=== PATIENT | female | born 1980 | race Caucasian/White ===

== ENCOUNTER 2017-05-19 18:39 | Inpatient (IN) | payer BC, OTHER ==
--- NOTE | 2017-05-19 19:15 | PDOC ---
History of Present Illness - General History Source: Patient Exam Limitations: No Limitations - History of Present Illness Initial Comments: Medical decision making this is a 36-year-old female who comes in complaining of intermittent right upper quadrant pain times several weeks. Now constant times the last 24 hours approximately. Patient denies any fevers or chills. Patient however is complaining of some nausea and vomiting. Differential diagnosis includes viral etiology, gastritis, cholecystitis, pancreatitis Will obtain workup including CBC, comp, gallbladder ultrasound, EKG Well-hydrated patient, given antiemetics and pain medication We'll reassess and follow-up the workup results 05/19/17 20:50 Reassessment: Patient improved with pain medication IV fluids and antiemetics, patient's workup so far shows normal white count with no left shift however her LFTs are elevated including her alkaline phosphatase. Patient's gallbladder ultrasound is still pending. 05/19/17 21:22 Patient's gallbladder shows acute cholecystitis. Discussed with Dr. Aliyah lucas who will consult on the patient patient will be admitted to the hospitalist service for medical clearance <Disha Gary I - Last Filed: 05/19/17 21:22> - General History Source: Patient Exam Limitations: No Limitations - History of Present Illness Initial Comments: 05/19/17 19:32 The patient is a 36 year old female, sent by PCP, with a significant past medical history of gastritis who presents to the ED with several days of abdominal pain. The patient reports a sudden onset of intermittent upper quadrant pain that radiates to her back Friday afternoon that lasted several hours before residing. She states the pain came on again last night around 8 pm secondary to eating rice and fried chicken and has not resided since. Patient described her pain as sharp and states it is worsened secondary to eating. She also reports multiple episodes of nausea and vomiting associated with present symptoms. She notes this is her 5th episode of similar symptoms this month. Patient visited her PCP earlier today for present symptoms and was sent to the ED. Denies fever or chills. Denies diarrhea or constipation. Denies chest pain or shortness of breath. Denies dysuria or change in urinary output. Denies any other symptoms. PAST MEDICAL HISTORY: gastritis PAST SURGICAL HISTORY: no significant history FAMILY HISTORY: no pertinent history SOCIAL HISTORY: Pt lives with family and is employed. MEDICATIONS: reviewed ALLERGIES: Penicillin General: No fevers or chills, no weakness, no weight loss HEENT: No change in vision. No sore throat,. No ear pain CardioVascular: No chest pain or shortness of breath Respiratory:No cough, or wheezing. Gastrointestinal: + abdominal pain, nausea, vomiting. no diarrhea or constipation, No rectal bleeding Genitourinary: No dysuria, hematuria, or frequency Musculoskeletal: No joint or muscle pain or swelling Neurologic: No headache, vertigo, dizziness or loss of consciousness Psychiatric: nor depression Skin: No rashes or easy bruising Endocrine: no increased thirst or abnormal weight change Allergic: no skin or latex allergy All other systems reviewed and normal General: Well-nourished well-developed individual, no acute distress HEENT: Throat: Normal, tonsils normal, no erythema or exudate Neck: Supple, no meningeal signs, no lymphadenopathy Eyes::Pupils equal reactive and round, extraocular motion intact Chest: Nontender to palpation Cardiac: S1-S2 normal, regular rate and rhythm, no murmurs rubs or gallops Respiratory: Lungs clear to auscultation bilateral Abdomen: + moderate tenderness in the right upper quadrant and epigastric area. Bowel sounds are present but slightly decreased. Soft, nondistended Extremities: Warm, dry, no cyanosis, clubbing, or edema Skin: No rashes Neuro: Alert and oriented x3, nonfocal exam, grossly intact, normal gait Psych: Normal mood and affect <Gerald Frances - Last Filed: 05/19/17 21:42> - General Chief Complaint: Pain Stated Complaint: ABD PAIN Time Seen by Provider: 05/19/17 19:14 Past History - Past Medical History COPD: No GI Disorders: Yes (GASTRITIS) Psychiatric Problems: Yes (ANXIETY) - Suicide/Smoking/Psychosocial Hx Smoking History: Never smoked Have you smoked in the past 12 months: No Hx Alcohol Use: (rarely) Substance Use Type: None <Disha Gary I - Last Filed: 05/19/17 21:22> <Gerald Frances - Last Filed: 05/19/17 21:42> - Past Medical History Allergies/Adverse Reactions: Allergies Allergy/AdvReac Type Severity Reaction Status Date / Time Penicillins Allergy Severe Hives Verified 05/19/17 18:44 Home Medications: Ambulatory Orders Pantoprazole Sodium [Protonix -] 40 mg PO DAILY #30 tablet.ec 06/19/14 *Physical Exam - Vital Signs Last Vital Signs Temp Pulse Resp BP Pulse Ox 98.7 F 62 18 113/77 100 05/19/17 18:40 05/19/17 18:40 05/19/17 18:40 05/19/17 18:40 05/19/17 18:40 <Disha Gary I - Last Filed: 05/19/17 21:22> - Vital Signs Last Vital Signs Temp Pulse Resp BP Pulse Ox 98.7 F 62 18 113/77 100 05/19/17 18:40 05/19/17 18:40 05/19/17 18:40 05/19/17 18:40 05/19/17 18:40 <Gerald Frances - Last Filed: 05/19/17 21:42> ED Treatment Course - LABORATORY CBC & Chemistry Diagram: 05/19/17 19:40 05/19/17 19:40 <Disha Gary I - Last Filed: 05/19/17 21:22> - LABORATORY CBC & Chemistry Diagram: 05/19/17 19:40 05/19/17 19:40 - ADDITIONAL ORDERS Additional order review: Laboratory Results 05/19/17 18:56 Urine Color Yellow Urine Appearance Clear Urine pH 8.5 H Ur Specific [place] 1.020 Urine Protein Negative Urine Glucose (UA) Negative Urine Ketones Negative Urine Blood Negative Urine Nitrite Negative Urine Bilirubin Negative Urine Urobilinogen 2.0 H Ur Leukocyte Esterase Negative Urine HCG, Qual Negative - RADIOLOGY Radiograph Interpretation: 05/19/17 21:41 US/GALLBLADDER US Impression: Cholelithiasis with positive [place] sign suspicious for acute cholecystitis. Reported by: Gustavo Hay <Gerald Frances - Last Filed: 05/19/17 21:42> *DC/Admit/Observation/Transfer - Discharge Dispostion Admit: Yes <Disha Gary I - Last Filed: 05/19/17 21:22> - Attestations Scribe Attestion: 05/19/17 19:32 Documentation prepared by Gerald Frances, acting as biomedical repair technician for Disha Gary MD <Gerald Frances - Last Filed: 05/19/17 21:42> Diagnosis at time of Disposition: Acute cholecystitis due to biliary calculus - Discharge Dispostion Condition at time of disposition: Stable
[2017-05-19 19:21] LABS: PH,URINE 8.5 (4.5-8); URINE APPEARANCE Clear; URINE BILIRUBIN Negative (NEGATIVE); URINE BLOOD Negative (NEGATIVE); URINE GLUCOSE (UA) Negative (NEGATIVE); URINE KETONE Negative (NEGATIVE); URINE LEUK ESTERASE Negative (NEGATIVE); URINE NITRITE Negative (NEGATIVE); URINE PROTEIN Negative (NEGATIVE)
[2017-05-19 19:22] LABS: URINE COLOR YELLOW
[2017-05-19] MEDS ORDERED: KETOROLAC TROMETHAMINE 30 MG/1 ML VIAL IVPUSH ONE (19:22)
[2017-05-19] MEDS ORDERED: morphine CARPU-JECT 4 MG/1 ML DISP.SYRIN IVPUSH ONE (19:22)
[2017-05-19] MEDS ORDERED: SODIUM CHLORIDE 1,000 ML IV ONE (19:22)
[2017-05-19] MEDS ORDERED: ONDANSETRON 4 MG/2 ML VIAL IVPB ONE (19:22)
[2017-05-19 19:23] LABS: HCG,QUALITATIVE URINE NEGATIVE
[2017-05-19] MEDS ORDERED: morphine SULFATE 4 MG/ML VIAL ONE (19:45)
[2017-05-19] MEDS ORDERED: KETOROLAC TROMETHAMINE 30 MG/1 ML VIAL ONE (19:46)
[2017-05-19] MEDS ORDERED: ONDANSETRON 4 MG/2 ML VIAL ONE (19:46)
[2017-05-19 20:01] LABS: EOS % 1.8 % (0-4.5); HEMATOCRIT 43.8 % (32.4-45.2); HEMOGLOBIN 14.6 GM/dl (10.7-15.3); LYMPH % 26.6 % (8-40); MCH 28.5 pg (25.7-33.7); MCHC 33.2 g/dl (32.0-36.0); MEAN CELL VOLUME 85.9 fl (80-96); MEAN PLT VOLUME 8.7 fl (7.5-11.1); MONO % 6.4 % (3.8-10.2); NEUT % 64.2 % (42.8-82.8); PLATELET COUNT 270 K/MM3 (134-434); RDW 12.2 % (11.6-15.6); WHITE BLOOD COUNT 7.5 K/mm3 (4.0-10.8)
[2017-05-19 20:11] LABS: ALBUMIN 4.3 g/dl (3.5-5.0); ALK PHOS 177 U/L (32-92); ANION GAP 7 (8-16); BILIRUBIN,TOTAL 0.7 mg/dl (0.2-1.0); BLOOD UREA NITROGEN 11 mg/dl (7-18); CALCIUM 9.5 mg/dl (8.4-10.2); CHLORIDE 104 mmol/L (98-107); CO2 25 mmol/L (22-28); CREATININE 0.8 mg/dl (0.6-1.3); GLUCOSE,RANDOM 85 mg/dl (74-106); POTASSIUM 3.6 mmol/L (3.5-5.1); SODIUM 136 mmol/L (136-145); TOT PROT 7.6 g/dl (6.4-8.3)
[2017-05-19 20:31] LABS: SGOT/AST 695 U/L (10-42); SGPT/ALT 835 U/L (10-40)
[2017-05-19] MEDS ORDERED: ONDANSETRON 4 MG/2 ML VIAL IVPB PRN (21:11)
[2017-05-19] MEDS ORDERED: SODIUM CHLORIDE 1,000 ML IV SCH (21:15)
[2017-05-19] MEDS ORDERED: PANTOPRAZOLE SODIUM 40 MG VIAL ONE (21:39)
[2017-05-19] MEDS: PANTOPRAZOLE SODIUM 40 MG VIAL IVPUSH SCH (21:44)
[2017-05-19] MEDS ORDERED: DEXTROSE 5%-0.45% SALINE 1,000 ML IV SCH (21:45)
[2017-05-19 21:59] LABS: LIPASE 13389 U/L (73-393)
--- NOTE | 2017-05-19 23:58 | HP ---
CHIEF COMPLAINT: PCP: HISTORY OF PRESENT ILLNESS: ER course was notable for: (1) (2) (3) Recent Travel: PAST MEDICAL HISTORY: PAST SURGICAL HISTORY: Social History: Smoking: Alcohol: Drugs: Family History: Allergies Penicillins Allergy (Severe, Verified 05/19/17 18:44) Hives HOME MEDICATIONS: Home Medications Medication Instructions Recorded Pantoprazole Sodium [Protonix -] 40 mg PO DAILY #30 tablet.ec 06/19/14 REVIEW OF SYSTEMS CONSTITUTIONAL: Absent: fever, chills, diaphoresis, generalized weakness, malaise, loss of appetite, weight change HEENT: Absent: rhinorrhea, nasal congestion, throat pain, throat swelling, difficulty swallowing, mouth swelling, ear pain, eye pain, visual changes CARDIOVASCULAR: Absent: chest pain, syncope, palpitations, irregular heart rate, lightheadedness , peripheral edema RESPIRATORY: Absent: cough, shortness of breath, dyspnea with exertion, orthopnea, wheezing, stridor, hemoptysis GASTROINTESTINAL: Absent: abdominal pain, abdominal distension, nausea, vomiting, diarrhea, constipation, melena, hematochezia GENITOURINARY: Absent: dysuria, frequency, urgency, hesitancy, hematuria, flank pain, genital pain MUSCULOSKELETAL: Absent: myalgia, arthralgia, joint swelling, back pain, neck pain SKIN: Absent: rash, itching, pallor HEMATOLOGIC/IMMUNOLOGIC: Absent: easy bleeding, easy bruising, lymphadenopathy, frequent infections ENDOCRINE: Absent: unexplained weight gain, unexplained weight loss, heat intolerance, cold intolerance NEUROLOGIC: Absent: headache, focal weakness or paresthesias, dizziness, unsteady gait, seizure, mental status changes, bladder or bowel incontinence PSYCHIATRIC: Absent: anxiety, depression, suicidal or homicidal ideation, hallucinations. PHYSICAL EXAMINATION Vital Signs - 24 hr 05/19/17 18:40 Temperature 98.7 F Pulse Rate 62 Respiratory 18 Rate Blood Pressure 113/77 O2 Sat by Pulse 100 Oximetry (%) GENERAL: Awake, alert, and fully oriented, in no acute distress. HEAD: Normal with no signs of trauma. EYES: Pupils equal, round and reactive to light, extraocular movements intact, sclera anicteric, conjunctiva clear. No lid lag. EARS, NOSE, THROAT: Ears normal, nares patent, oropharynx clear without exudates. Moist mucous membranes. NECK: Normal range of motion, supple without lymphadenopathy, JVD, or masses. LUNGS: Breath sounds equal, clear to auscultation bilaterally. No wheezes, and no crackles. No accessory muscle use. HEART: Regular rate and rhythm, normal S1 and S2 without murmur, rub or gallop. ABDOMEN: Soft, nontender, not distended, normoactive bowel sounds, no guarding, no rebound, no masses. No hepatomegaly or splenomegaly. MUSCULOSKELETAL: Normal range of motion at all joints. No bony deformities or tenderness. No CVA tenderness. UPPER EXTREMITIES: 2+ pulses, warm, well-perfused. No cyanosis. No clubbing. No peripheral edema. LOWER EXTREMITIES: 2+ pulses, warm, well-perfused. No calf tenderness. No peripheral edema. NEUROLOGICAL: Cranial nerves II-XII intact. Normal speech. Normal gait. PSYCHIATRIC: Cooperative. Good eye contact. Appropriate mood and affect. SKIN: Warm, dry, normal turgor, no rashes or lesions noted, normal capillary refill. Laboratory Results - last 24 hr 05/19/17 05/19/17 05/19/17 18:56 19:40 19:40 WBC 7.5 RBC 5.10 Hgb 14.6 Hct 43.8 MCV 85.9 MCH 28.5 MCHC 33.2 RDW 12.2 Plt Count 270 MPV 8.7 Neutrophils % 64.2 Lymphocytes % 26.6 Monocytes % 6.4 Eosinophils % 1.8 Basophils % 1.0 Sodium 136 Potassium 3.6 Chloride 104 Carbon Dioxide 25 Anion Gap 7 L BUN 11 Creatinine 0.8 Creat Clearance w eGFR > 60 Random Glucose 85 Calcium 9.5 Total Bilirubin 0.7 AST 695 H ALT 835 H Alkaline Phosphatase 177 H Total Protein 7.6 Albumin 4.3 Lipase 87483 H Urine Color Yellow Urine Appearance Clear Urine pH 8.5 H Ur Specific [place] 1.020 Urine Protein Negative Urine Glucose (UA) Negative Urine Ketones Negative Urine Blood Negative Urine Nitrite Negative Urine Bilirubin Negative Urine Urobilinogen 2.0 H Ur Leukocyte Esterase Negative Urine HCG, Qual Negative ASSESSMENT/PLAN: Problem List - Problem (1) Acute cholecystitis due to biliary calculus Code(s): K80.00 - CALCULUS OF GALLBLADDER W ACUTE CHOLECYST W/O OBSTRUCTION (2) Transaminitis Code(s): R74.0 - NONSPEC ELEV OF LEVELS OF TRANSAMNS & LACTIC ACID DEHYDRGNSE (3) Gastritis Code(s): K29.70 - GASTRITIS, UNSPECIFIED, WITHOUT BLEEDING (4) DVT prophylaxis Code(s): OSO4296 - Visit type - Emergency Visit Emergency Visit: Yes ED Registration Date: 05/19/17 Care time: The patient presented to the Emergency Department on the above date and was hospitalized for further evaluation of their emergent condition. - New Patient This patient is new to me today: Yes Date on this admission: 05/19/17 - Critical Care Critical Care patient: No Hospitalist Screening - Colonoscopy Questionnaire Colonoscopy Questionnaire: Colonoscopy Questionnaire - Patient: 50 - 75 years old and never had a screening colonoscopy: No History of colon or rectal polyps, or CA: No History of IBD, Crohn's disease or UC: No History of abdominal radiation therapy as a child: No - Relative: 1 with colon or rectal CA, or polyps at age 60 or younger: No Colon or rectal CA diagnosed at age 45 or younger: No Multiple relatives with colon or rectal CA: No - Outcome: Screening Result: Negative Screen
[2017-05-20 00:53] VITALS: BMI 26.0
--- NOTE | 2017-05-20 07:30 | PN ---
Progress Note (short form) - Note Progress Note: Please reach out to Dr. Delgado for GI consult. Discussed with the patient's note
[2017-05-20 08:39] LABS: BASO % 0.5 % (0-2.0); EOS % 3.4 % (0-4.5); HEMATOCRIT 36.1 % (32.4-45.2); HEMOGLOBIN 12.4 GM/dl (10.7-15.3); LYMPH % 40.2 % (8-40); MCH 29.5 pg (25.7-33.7); MCHC 34.5 g/dl (32.0-36.0); MEAN CELL VOLUME 85.6 fl (80-96); MEAN PLT VOLUME 9.2 fl (7.5-11.1); MONO % 6.1 % (3.8-10.2); NEUT % 49.8 % (42.8-82.8); PLATELET COUNT 193 K/MM3 (134-434); RBC 4.21 M/mm3 (3.60-5.2); RDW 12.1 % (11.6-15.6); WHITE BLOOD COUNT 6.1 K/mm3 (4.0-10.8)
[2017-05-20 08:49] LABS: ALBUMIN 3.2 g/dl (3.5-5.0); ALK PHOS 124 U/L (32-92); ANION GAP 4 (8-16); BILIRUBIN,TOTAL 0.9 mg/dl (0.2-1.0); BLOOD UREA NITROGEN 12 mg/dl (7-18); CALCIUM 8.1 mg/dl (8.4-10.2); CHLORIDE 110 mmol/L (98-107); CO2 23 mmol/L (22-28); CREATININE 0.7 mg/dl (0.6-1.3); GLUCOSE,RANDOM 84 mg/dl (74-106); POTASSIUM 3.8 mmol/L (3.5-5.1); SGOT/AST 254 U/L (10-42); SODIUM 137 mmol/L (136-145); TOT PROT 5.9 g/dl (6.4-8.3)
[2017-05-20 09:48] LABS: SGPT/ALT 459 U/L (10-40)
[2017-05-20] MEDS: PANTOPRAZOLE SODIUM 40 MG VIAL IVPUSH SCH (10:48)
--- NOTE | 2017-05-20 11:06 | CONSULT ---
<Maranda Ferrell - Last Filed: 05/20/17 11:32> - Consultation REQUESTING PROVIDER: CONSULT REQUEST: We have been asked to surgically evaluate this patient for gall stone pancreatitis. PCP:Leana Curry NP HISTORY OF PRESENT ILLNESS: The patient is a 36 yo female who presents with upper abd pain, nausea and emesis. She has a history of upper abd pain and known gastritis. hiatal hernia. She takes her protonix on an as needed basis depending upon her symptoms. Her symptoms have been increasing in frequency and this episode began this past Friday. Currently, her pain is improved as well as her nausea/emesis. Her last BM was . No dysuria/hematuria/fevers/CP/SOB. PMHx: kidney cyst, constipation, scoliosis PSHx: deviated septum repair Home Medications Medication Instructions Recorded Pantoprazole Sodium [Protonix -] 40 mg PO DAILY #30 tablet.ec 06/19/14 Allergies Allergy/AdvReac Type Severity Reaction Status Date / Time Penicillins Allergy Severe Hives Verified 05/19/17 18:44 REVIEW OF SYSTEMS: CONSTITUTIONAL: Absent: fever, chills. CARDIOVASCULAR: Absent: chest pain, syncope, palpitations, irregular heart rate. RESPIRATORY: Absent: cough, shortness of breath. GASTROINTESTINAL: Present: abdominal pain, nausea, vomiting, diarrhea, constipation. GENITOURINARY: Absent: dysuria, frequency MUSCULOSKELETAL: Present: joint swelling(occasion b/l knees) back pain Absent: neck pain HEMATOLOGIC/IMMUNOLOGIC: Absent: easy bleeding, easy bruising, no h/o DVT NEUROLOGIC: Present: occasion headache, relief with ibuprofen Absent: paresthesias, seizure. PHYSICAL EXAM: GENERAL: Awake, alert, and fully oriented, in no acute distress. HEAD: Normal with no signs of trauma. EYES: sclera anicteric, conjunctiva clear. NECK: Normal ROM, supple. LUNGS: Clear to auscultation bilat anteriorly. No wheezes, and no crackles. No accessory muscle use. HEART: Regular rate and rhythm. No murmurs ABDOMEN: Soft, RUQ pain, not distended, RUQ gaurding, no rebound, no masses. UPPER EXTREMITIES: 2+ pulses, warm. LOWER EXTREMITIES: No calf tenderness. No peripheral edema. NEUROLOGICAL: Normal speech, gait not observed. PSYCH: Cooperative. Good eye contact. Appropriate mood and affect. Vital Signs Temperature 98 F 05/20/17 05:38 Pulse Rate 67 05/20/17 05:38 Respiratory Rate 20 05/20/17 08:15 Blood Pressure 97/46 05/20/17 05:38 O2 Sat by Pulse Oximetry (%) 98 05/20/17 08:15 Lab Results WBC 6.1 K/mm3 (4.0-10.8) 05/20/17 08:00 RBC 4.21 M/mm3 (3.60-5.2) 05/20/17 08:00 Hgb 12.4 GM/dl (10.7-15.3) D 05/20/17 08:00 Hct 36.1 % (32.4-45.2) D 05/20/17 08:00 MCV 85.6 fl (80-96) 05/20/17 08:00 MCHC 34.5 g/dl (32.0-36.0) 05/20/17 08:00 RDW 12.1 % (11.6-15.6) 05/20/17 08:00 Plt Count 193 K/MM3 (134-434) 05/20/17 08:00 Sodium 137 mmol/L (136-145) 05/20/17 08:00 Potassium 3.8 mmol/L (3.5-5.1) 05/20/17 08:00 Chloride 110 mmol/L (98-107) H 05/20/17 08:00 Carbon Dioxide 23 mmol/L (22-28) 05/20/17 08:00 Anion Gap 4 (8-16) L 05/20/17 08:00 BUN 12 mg/dl (7-18) 05/20/17 08:00 Creatinine 0.7 mg/dl (0.6-1.3) 05/20/17 08:00 Random Glucose 84 mg/dl (74-106) 05/20/17 08:00 Calcium 8.1 mg/dl (8.4-10.2) L 05/20/17 08:00 Laboratory Tests 05/19/17 05/19/17 05/20/17 18:56 19:40 07:15 AST ALT Alkaline Phosphatase Lipase 23455 H Pending Urine Color Yellow Urine Appearance Clear Urine pH 8.5 H Ur Specific [place] 1.020 Urine Protein Negative Urine Glucose (UA) Negative Urine Ketones Negative Urine Blood Negative Urine Nitrite Negative Urine Bilirubin Negative Urine Urobilinogen 2.0 H Ur Leukocyte Esterase Negative Urine HCG, Qual Negative 05/20/17 08:00 AST 254 H D ALT 459 H D Alkaline Phosphatase 124 H D Lipase Urine Color Urine Appearance Urine pH Ur Specific [place] Urine Protein Urine Glucose (UA) Urine Ketones Urine Blood Urine Nitrite Urine Bilirubin Urine Urobilinogen Ur Leukocyte Esterase Urine HCG, Qual US: cholelithiasis with postitive edwards's sign A/P: 36 yo female with h/o gastritis/hiatal hernia now with gallstone pancreatitis D/w Dr. Ly, will continue npo/IV hydration Called lab to obtain lipase level MRCP ordered Will plan for surgery if MRCP negative and LFTs/lipase improving Will continue to follow the patient Visit type - Case Type Case Type: ED Admission - Emergency Emergency Visit: Yes ED Registration Date: 05/19/17 Care time: The patient presented to the Emergency Department on the above date and was hospitalized for further evaluation of their emergent condition. - New patient This patient is new to me today: Yes Date on this admission: 05/20/17 <Daniel Ly - Last Filed: 05/20/17 14:38> - Consultation REQUESTING PROVIDER: CONSULT REQUEST: We have been asked to surgically evaluate this patient for ( specify). PCP:Leana Curry NP HISTORY OF PRESENT ILLNESS: PMHx: PSHx: Home Medications Medication Instructions Recorded Pantoprazole Sodium [Protonix -] 40 mg PO DAILY #30 tablet.ec 06/19/14 Allergies Allergy/AdvReac Type Severity Reaction Status Date / Time Penicillins Allergy Severe Hives Verified 05/19/17 18:44 REVIEW OF SYSTEMS: CONSTITUTIONAL: Absent: fever, chills, diaphoresis, generalized weakness, malaise, loss of appetite, weight change CARDIOVASCULAR: Absent: chest pain, syncope, palpitations, irregular heart rate, lightheadedness , peripheral edema RESPIRATORY: Absent: cough, shortness of breath, dyspnea with exertion, wheezing, stridor, hemoptysis GASTROINTESTINAL: Absent: abdominal pain, abdominal distension, nausea, vomiting, diarrhea, constipation, melena, hematochezia GENITOURINARY: Absent: dysuria, frequency, urgency, hesitancy, hematuria, flank pain, genital pain MUSCULOSKELETAL: Absent: myalgia, arthralgia, joint swelling, back pain, neck pain SKIN: Absent: rash, itching, pallor HEMATOLOGIC/IMMUNOLOGIC: Absent: easy bleeding, easy bruising, lymphadenopathy NEUROLOGIC: Absent: headache, focal weakness, paresthesias, dizziness, unsteady gait, seizure, mental status changes, bladder or bowel incontinence PSYCHIATRIC: Absent: anxiety, depression, suicidal or homicidal ideation, hallucinations. PHYSICAL EXAM: GENERAL: Awake, alert, and fully oriented, in no acute distress. HEAD: Normal with no signs of trauma. EYES: PERRL, sclera anicteric, conjunctiva clear. NECK: Normal ROM, supple without lymphadenopathy, JVD, or masses. LUNGS: Clear to auscultation bilat anteriorly. No wheezes, and no crackles. No accessory muscle use. HEART: Regular rate and rhythm. No murmurs ABDOMEN: Soft, nontender, not distended, normoactive bowel sounds, no guarding, no rebound, no masses. No organomegaly. MUSCULOSKELETAL: Normal ROM at all joints. No bony deformities or tenderness. No CVA tenderness. UPPER EXTREMITIES: 2+ pulses, warm, well-perfused. No cyanosis. Cap refill <2 seconds. No peripheral edema. LOWER EXTREMITIES: 2+ pulses, warm, well-perfused. No calf tenderness. No peripheral edema. NEUROLOGICAL: Normal speech, gait not observed. PSYCH: Cooperative. Good eye contact. Appropriate mood and affect. SKIN: Warm, dry, normal turgor, no rashes or lesions noted. Vital Signs Temperature 99.0 F 05/20/17 14:18 Pulse Rate 68 05/20/17 14:18 Respiratory Rate 16 05/20/17 14:18 Blood Pressure 105/54 05/20/17 14:18 O2 Sat by Pulse Oximetry (%) 100 05/20/17 14:18 Lab Results WBC 6.1 K/mm3 (4.0-10.8) 05/20/17 08:00 RBC 4.21 M/mm3 (3.60-5.2) 05/20/17 08:00 Hgb 12.4 GM/dl (10.7-15.3) D 05/20/17 08:00 Hct 36.1 % (32.4-45.2) D 05/20/17 08:00 MCV 85.6 fl (80-96) 05/20/17 08:00 MCHC 34.5 g/dl (32.0-36.0) 05/20/17 08:00 RDW 12.1 % (11.6-15.6) 05/20/17 08:00 Plt Count 193 K/MM3 (134-434) 05/20/17 08:00 Sodium 137 mmol/L (136-145) 05/20/17 08:00 Potassium 3.8 mmol/L (3.5-5.1) 05/20/17 08:00 Chloride 110 mmol/L (98-107) H 05/20/17 08:00 Carbon Dioxide 23 mmol/L (22-28) 05/20/17 08:00 Anion Gap 4 (8-16) L 05/20/17 08:00 BUN 12 mg/dl (7-18) 05/20/17 08:00 Creatinine 0.7 mg/dl (0.6-1.3) 05/20/17 08:00 Random Glucose 84 mg/dl (74-106) 05/20/17 08:00 Calcium 8.1 mg/dl (8.4-10.2) L 05/20/17 08:00 Agree + Abdominal pain/RUQ pain AVSS Abd soft, + RUQ tenderness WBC WNL Bilirubin WNL Lipase [id number]->1500 MRCP no CBD stone Biliary pancreatitis For laparoscopic possible open cholecystectomy Risks and benefits explained Understands and agrees
[2017-05-20] MEDS ORDERED: SODIUM CHLORIDE 1,000 ML IV SCH (12:38)
--- NOTE | 2017-05-20 14:18 | HP ---
CHIEF COMPLAINT: PCP: HISTORY OF PRESENT ILLNESS: ER course was notable for: (1) (2) (3) Recent Travel: PAST MEDICAL HISTORY: PAST SURGICAL HISTORY: Social History: Smoking: Alcohol: Drugs: Family History: Allergies Penicillins Allergy (Severe, Verified 05/19/17 18:44) Hives HOME MEDICATIONS: Home Medications Medication Instructions Recorded Pantoprazole Sodium [Protonix -] 40 mg PO DAILY #30 tablet.ec 06/19/14 REVIEW OF SYSTEMS CONSTITUTIONAL: Absent: fever, chills, diaphoresis, generalized weakness, malaise, loss of appetite, weight change HEENT: Absent: rhinorrhea, nasal congestion, throat pain, throat swelling, difficulty swallowing, mouth swelling, ear pain, eye pain, visual changes CARDIOVASCULAR: Absent: chest pain, syncope, palpitations, irregular heart rate, lightheadedness , peripheral edema RESPIRATORY: Absent: cough, shortness of breath, dyspnea with exertion, orthopnea, wheezing, stridor, hemoptysis GASTROINTESTINAL: Absent: abdominal pain, abdominal distension, nausea, vomiting, diarrhea, constipation, melena, hematochezia GENITOURINARY: Absent: dysuria, frequency, urgency, hesitancy, hematuria, flank pain, genital pain MUSCULOSKELETAL: Absent: myalgia, arthralgia, joint swelling, back pain, neck pain SKIN: Absent: rash, itching, pallor HEMATOLOGIC/IMMUNOLOGIC: Absent: easy bleeding, easy bruising, lymphadenopathy, frequent infections ENDOCRINE: Absent: unexplained weight gain, unexplained weight loss, heat intolerance, cold intolerance NEUROLOGIC: Absent: headache, focal weakness or paresthesias, dizziness, unsteady gait, seizure, mental status changes, bladder or bowel incontinence PSYCHIATRIC: Absent: anxiety, depression, suicidal or homicidal ideation, hallucinations. PHYSICAL EXAMINATION Vital Signs - 24 hr 05/19/17 05/19/17 05/20/17 18:40 22:36 00:47 Temperature 98.7 F 97.9 F 97.9 F Pulse Rate 62 70 70 Respiratory 18 20 20 Rate Blood Pressure 113/77 107/73 107/73 O2 Sat by Pulse 100 98 98 Oximetry (%) 05/20/17 05/20/17 05/20/17 05:38 08:15 11:00 Temperature 98 F 98.5 F Pulse Rate 67 84 Respiratory 20 20 18 Rate Blood Pressure 97/46 101/52 O2 Sat by Pulse 98 98 Oximetry (%) 05/20/17 11:39 Temperature Pulse Rate Respiratory Rate Blood Pressure O2 Sat by Pulse 100 Oximetry (%) GENERAL: Awake, alert, and fully oriented, in no acute distress. HEAD: Normal with no signs of trauma. EYES: Pupils equal, round and reactive to light, extraocular movements intact, sclera anicteric, conjunctiva clear. No lid lag. EARS, NOSE, THROAT: Ears normal, nares patent, oropharynx clear without exudates. Moist mucous membranes. NECK: Normal range of motion, supple without lymphadenopathy, JVD, or masses. LUNGS: Breath sounds equal, clear to auscultation bilaterally. No wheezes, and no crackles. No accessory muscle use. HEART: Regular rate and rhythm, normal S1 and S2 without murmur, rub or gallop. ABDOMEN: Soft, nontender, not distended, normoactive bowel sounds, no guarding, no rebound, no masses. No hepatomegaly or splenomegaly. MUSCULOSKELETAL: Normal range of motion at all joints. No bony deformities or tenderness. No CVA tenderness. UPPER EXTREMITIES: 2+ pulses, warm, well-perfused. No cyanosis. No clubbing. No peripheral edema. LOWER EXTREMITIES: 2+ pulses, warm, well-perfused. No calf tenderness. No peripheral edema. NEUROLOGICAL: Cranial nerves II-XII intact. Normal speech. Normal gait. PSYCHIATRIC: Cooperative. Good eye contact. Appropriate mood and affect. SKIN: Warm, dry, normal turgor, no rashes or lesions noted, normal capillary refill. Laboratory Results - last 24 hr 05/19/17 05/19/17 05/19/17 18:56 19:40 19:40 WBC 7.5 RBC 5.10 Hgb 14.6 Hct 43.8 MCV 85.9 MCH 28.5 MCHC 33.2 RDW 12.2 Plt Count 270 MPV 8.7 Neutrophils % 64.2 Lymphocytes % 26.6 Monocytes % 6.4 Eosinophils % 1.8 Basophils % 1.0 Sodium 136 Potassium 3.6 Chloride 104 Carbon Dioxide 25 Anion Gap 7 L BUN 11 Creatinine 0.8 Creat Clearance w eGFR > 60 Random Glucose 85 Calcium 9.5 Total Bilirubin 0.7 AST 695 H ALT 835 H Alkaline Phosphatase 177 H Total Protein 7.6 Albumin 4.3 Lipase 54176 H Urine Color Yellow Urine Appearance Clear Urine pH 8.5 H Ur Specific [place] 1.020 Urine Protein Negative Urine Glucose (UA) Negative Urine Ketones Negative Urine Blood Negative Urine Nitrite Negative Urine Bilirubin Negative Urine Urobilinogen 2.0 H Ur Leukocyte Esterase Negative Urine HCG, Qual Negative 05/20/17 05/20/17 05/20/17 07:15 08:00 08:00 WBC 6.1 RBC 4.21 Hgb 12.4 D Hct 36.1 D MCV 85.6 MCH 29.5 MCHC 34.5 RDW 12.1 Plt Count 193 MPV 9.2 Neutrophils % 49.8 Lymphocytes % 40.2 H Monocytes % 6.1 Eosinophils % 3.4 Basophils % 0.5 Sodium 137 Potassium 3.8 Chloride 110 H Carbon Dioxide 23 Anion Gap 4 L BUN 12 Creatinine 0.7 Creat Clearance w eGFR > 60 Random Glucose 84 Calcium 8.1 L Total Bilirubin 0.9 D AST 254 H D ALT 459 H D Alkaline Phosphatase 124 H D Total Protein 5.9 L D Albumin 3.2 L D Lipase 1579 H Urine Color Urine Appearance Urine pH Ur Specific [place] Urine Protein Urine Glucose (UA) Urine Ketones Urine Blood Urine Nitrite Urine Bilirubin Urine Urobilinogen Ur Leukocyte Esterase Urine HCG, Qual ASSESSMENT/PLAN: Hospitalist Screening - Colonoscopy Questionnaire Colonoscopy Questionnaire: Colonoscopy Questionnaire
--- NOTE | 2017-05-20 14:24 | PN ---
Physical Exam: SUBJECTIVE: Patient seen and examined. Reports pain improved. Now with c/o feeling hungry. OBJECTIVE: Vital Signs - 24 hr 3 05/19/17 05/19/17 05/20/17 18:40 22:36 00:47 Temperature 98.7 F 97.9 F 97.9 F Pulse Rate 62 70 70 Respiratory 18 20 20 Rate Blood Pressure 113/77 107/73 107/73 O2 Sat by Pulse 100 98 98 Oximetry (%) 3 05/20/17 05/20/17 05/20/17 05:38 08:15 11:00 Temperature 98 F 98.5 F Pulse Rate 67 84 Respiratory 20 20 18 Rate Blood Pressure 97/46 101/52 O2 Sat by Pulse 98 98 Oximetry (%) GENERAL: The patient is awake, alert, and fully oriented, in no acute distress. HEAD: Normal with no signs of trauma. EYES: PERRL, extraocular movements intact, sclera anicteric, conjunctiva clear. No ptosis. ENT: Ears normal, nares patent, oropharynx clear without exudates, moist mucous membranes. NECK: Trachea midline, full range of motion, supple. LUNGS: Breath sounds equal, clear to auscultation bilaterally, no wheezes, no crackles, no accessory muscle use. HEART: Regular rate and rhythm, S1, S2 without murmur, rub or gallop. ABDOMEN: Soft, tender on deep palpation RUQ, nondistended, normoactive bowel sounds, no guarding, no rebound, no hepatosplenomegaly, no masses. EXTREMITIES: 2+ pulses, warm, well-perfused, no edema. NEUROLOGICAL: Cranial nerves II through XII grossly intact. Normal speech, gait not observed. PSYCH: Normal mood, normal affect. SKIN: Warm, dry, normal turgor, no rashes or lesions noted Laboratory Results - last 24 hr 3 05/19/17 05/19/17 05/19/17 18:56 19:40 19:40 WBC 7.5 RBC 5.10 Hgb 14.6 Hct 43.8 MCV 85.9 MCH 28.5 MCHC 33.2 RDW 12.2 Plt Count 270 MPV 8.7 Neutrophils % 64.2 Lymphocytes % 26.6 Monocytes % 6.4 Eosinophils % 1.8 Basophils % 1.0 Sodium 136 Potassium 3.6 Chloride 104 Carbon Dioxide 25 Anion Gap 7 L BUN 11 Creatinine 0.8 Creat Clearance w eGFR > 60 Random Glucose 85 Calcium 9.5 Total Bilirubin 0.7 AST 695 H ALT 835 H Alkaline Phosphatase 177 H Total Protein 7.6 Albumin 4.3 Lipase 30509 H Urine Color Yellow Urine Appearance Clear Urine pH 8.5 H Ur Specific [place] 1.020 Urine Protein Negative Urine Glucose (UA) Negative Urine Ketones Negative Urine Blood Negative Urine Nitrite Negative Urine Bilirubin Negative Urine Urobilinogen 2.0 H Ur Leukocyte Esterase Negative Urine HCG, Qual Negative 3 05/20/17 05/20/17 05/20/17 07:15 08:00 08:00 WBC 6.1 RBC 4.21 Hgb 12.4 D Hct 36.1 D MCV 85.6 MCH 29.5 MCHC 34.5 RDW 12.1 Plt Count 193 MPV 9.2 Neutrophils % 49.8 Lymphocytes % 40.2 H Monocytes % 6.1 Eosinophils % 3.4 Basophils % 0.5 Sodium 137 Potassium 3.8 Chloride 110 H Carbon Dioxide 23 Anion Gap 4 L BUN 12 Creatinine 0.7 Creat Clearance w eGFR > 60 Random Glucose 84 Calcium 8.1 L Total Bilirubin 0.9 D AST 254 H D ALT 459 H D Alkaline Phosphatase 124 H D Total Protein 5.9 L D Albumin 3.2 L D Lipase 1579 H Urine Color Urine Appearance Urine pH Ur Specific [place] Urine Protein Urine Glucose (UA) Urine Ketones Urine Blood Urine Nitrite Urine Bilirubin Urine Urobilinogen Ur Leukocyte Esterase Urine HCG, Qual Active Medications 3 Generic Name Dose Route Start Last Admin Trade Name Freq PRN Reason Stop Dose Admin Hydromorphone HCl 1 mg 05/19/17 21:11 Dilaudid Injection - IVPB Q4H PRN PAIN Sodium Chloride 1,000 mls @ 250 mls/hr 05/20/17 12:38 Normal Saline - IV ASDIR JENN Ondansetron HCl 4 mg 05/19/17 21:11 Zofran Injection IVPB Q4H PRN NAUSEA Pantoprazole Sodium 40 mg 05/19/17 21:15 05/20/17 10:48 Protonix Iv IVPUSH 40 mg DAILY JENN Administration Radiology Reports ABDOMEN MRI W W/O CONTRAST IMPRESSION: 1. No biliary ductal dilatation or pancreatic ductal dilatation. No evidence of choledocholithiasis. 2. Cholelithiasis with mild gallbladder wall thickening could be attributed to chronic cholecystitis. No definite evidence of acute cholecystitis. Please correlate clinically. 3. No MR evidence of pancreatitis. No pancreatic mass or peripancreatic collection. Reported By: Terri Desai DO 05/20/17 1338 ASSESSMENT/PLAN: 36yF with PMH GERD who presented to the ED with RUQ pain. Cholecystitis with elevated lipase - lipase likely due to passed stone, lipase now down significantly - MRCP with no evidence of choledocholithiasis - pt to go to OR as soon as available - AMADA Ly GERD - protonix IV until postop, then transition to po DVT PPX - deferred, anticipated DC home in am FEN - NS @ 150cc/hr - CMP in am - NPO for now, liquid diet postop Dispo: pt to OR, likely to go home in am if labs ok. Visit type - Emergency Visit Emergency Visit: Yes ED Registration Date: 05/19/17 Care time: The patient presented to the Emergency Department on the above date and was hospitalized for further evaluation of their emergent condition. - New Patient This patient is new to me today: Yes Date on this admission: 05/20/17 - Critical Care Critical Care patient: No
[2017-05-20] MEDS ORDERED: fentaNYL CITRATE 250 MCG/5 ML VIAL ONE (15:15)
[2017-05-20] MEDS ORDERED: PROPOFOL 20 ML ONE (15:15)
[2017-05-20] MEDS ORDERED: ROCURONIUM BROMIDE 50 MG/5 ML VIAL ONE (15:34)
[2017-05-20] MEDS ORDERED: CLINDAMYCIN PHOSPHATE 600 MG/4 ML VIAL ONE (15:34)
[2017-05-20] MEDS ORDERED: DEXAMETHASONE SOD PHOSPHATE 4 MG/1 ML VIAL ONE (15:35)
[2017-05-20] MEDS ORDERED: ONDANSETRON 4 MG/2 ML VIAL ONE ×2 (15:35→17:06)
[2017-05-20] MEDS ORDERED: BUPIVACAINE HCL 0.5% 250 MG/50 ML VIAL IJ ONE (16:26)
[2017-05-20] MEDS ORDERED: NEOSTIGMINE METHYLSULFATE 0.5 MG/ML - 10 ML MDV ONE (17:05)
[2017-05-20] MEDS ORDERED: GLYCOPYRROLATE 0.2 MG/1 ML VIAL ONE (17:06)
--- NOTE | 2017-05-20 17:17 | OP ---
Operative Note - Note: Operative Date: 05/20/17 Pre-Operative Diagnosis: Biliary pancreatitis Operation: Laparoscopic cholecystectomy Post-Operative Diagnosis: Same as Pre-op Surgeon: Daniel Ly Professional Bondsman: Maranda Ferrell Anesthesia: General Specimens Removed: Gallbladder Estimated Blood Loss (mls): 30 Operative Report Dictated: Yes
[2017-05-20] MEDS ORDERED: ONDANSETRON 4 MG/2 ML VIAL IVPUSH PRN (17:23)
[2017-05-20] MEDS ORDERED: PROMETHAZINE HCL 25 MG/1 ML VIAL IVPUSH PRN (17:23)
[2017-05-20] MEDS: HYDROmorphone HCL CARPU-JECT 1 MG/1 ML DISP.SYRIN IVPUSH PRN ×3 (17:25→18:05)
[2017-05-20] MEDS ORDERED: HYDROmorphone HCL CARPU-JECT 1 MG/1 ML DISP.SYRIN ONE ×2 (17:27→18:00)
[2017-05-20] MEDS ORDERED: LACTATED RINGERS SOLUTION 1,000 ML IV SCH (17:30)
[2017-05-20] MEDS ORDERED: PROMETHAZINE HCL 25 MG/1 ML VIAL ONE (17:45)
--- NOTE | 2017-05-20 18:47 | SPEC ---
DATE OF OPERATION: 05/20/2017 SURGEON: Daniel Ly M.D. PREOPERATIVE DIAGNOSIS: Biliary pancreatitis. POSTOPERATIVE DIAGNOSIS: Biliary pancreatitis. PROCEDURE: Laparoscopic cholecystectomy. SPECIMEN: Gallbladder. ESTIMATED BLOOD LOSS: 30 mL. DRAINS: None. ANESTHESIA: GET. REASON FOR PROCEDURE: This is a 36-year-old female presents to the emergency room for abdominal pain. On workup, she was found to have an elevated lipase consistent with pancreatitis and gallstones. On imaging, she was noted to have no stone in her common bile duct but multiple stones in her gallbladder. Her lipase trended downwards, and then she was consented for a laparoscopic, possible open cholecystectomy. The risks and benefits of the procedure were explained; these included bleeding, infection, hernia, AK, DVT, PE, injury to surrounding structures, bile leak, retained stone. RISKS AND BENEFITS: The risks and benefits of a laparoscopic, possible open cholecystectomy were explained. These included bleeding, infection, hernia, AK, DVT, PE, injury to surrounding structures including the liver, colon, bowel, bile ducts, vessel injury, nerve injury, bile leak, and retained stones as some of the possible complications. The patient understood and signed informed consents. DESCRIPTION OF PROCEDURE: The patient was placed supine on the operating room table. The patient underwent general endotracheal intubation. The abdomen was prepped and draped in the usual sterile fashion. A timeout was performed. A periumbilical incision was made, and a 5-mm optical trocar was inserted under direct visualization with the laparoscope. Pneumoperitoneum was then established. Subsequently, a 5-mm trocar was placed in the subxiphoid area and two 5-mm trocars were placed in the right upper quadrant. The 5-mm trocar at the periumbilical region was removed and a 10-mm trocar was inserted. The patient was placed in reverse Trendelenburg, right side up position. The gallbladder was noted and was retracted cephalad and laterally. Any overlying omental adhesions were carefully dissected. The peritoneum was dissected using electrocautery. The cystic duct followed by the cystic artery were circumferentially dissected, clipped and transected. The gallbladder was removed off the liver bed using electrocautery. Hemostasis of the liver bed and surrounding area was attained using electrocautery. The gallbladder was placed in an EndoCatch bag. Copious irrigation and suction were performed until clear. The gallbladder was removed from the abdominal cavity. The fascia at the 10-mm trocar site was closed using a 0-Vicryl suture. All incision sites were irrigated and Marcaine was injected. Hemostasis of all incision sites was noted. All incision sites were closed using 4-0 Biosyn. Sterile dressings were applied. The patient tolerated the procedure well and was transferred to the recovery room in stable condition. Uma [id number]
[2017-05-20] MEDS: HYDROmorphone HCL CARPU-JECT 1 MG/1 ML DISP.SYRIN IVPB PRN ×2 (19:05→23:15)
--- NOTE | 2017-05-20 19:28 | SURG ---
Surgery [employer] Note [employer]: Maranda Ferrell PA-C Date of Service: 05/20/17 Diagnosis: Biliary pancreatitis Procedure: Laparoscopic cholecystectomy I was present for the entirety of the operative procedure. For further detail, please refer to operative report. Visit type - Case Type Case Type: ED Admission - Emergency Emergency Visit: Yes ED Registration Date: 05/19/17 Care time: The patient presented to the Emergency Department on the above date and was hospitalized for further evaluation of their emergent condition. - New patient This patient is new to me today: Yes Date on this admission: 05/20/17
[2017-05-21] MEDS: HYDROmorphone HCL CARPU-JECT 1 MG/1 ML DISP.SYRIN IVPB PRN ×3 (03:51→21:25)
--- NOTE | 2017-05-21 08:03 | PN ---
Progress Note (short form) - Note Progress Note: surgery POD #1 lap mustapha patient seen and examined at bedside c/o abdominal pain. Patient has been OOb and voiding without assistance although difficult 2/2 pain blocking. She is tolerating clears. She denies any fever, chills, n/v. Vital Signs Temp 98.3 F 05/21/17 06:00 Pulse 73 05/21/17 07:59 Resp 18 05/21/17 07:59 BP 107/50 05/21/17 07:59 Pulse Ox 98 05/21/17 06:00 Intake & Output 05/20/17 05/20/17 05/21/17 11:59 23:59 11:59 Intake Total 1750 1900 1250 Output Total 300 Balance 1750 1600 1250 Weight 147 lb 147 lb Intake: IV 1650 1900 1250 Lactated Ringers Solution 1250 1,000 ml @ 125 mls/hr IV ASDIR JENN Rx#: [id number] Normal Saline - 1,000 ml 1650 @ 150 mls/hr IV ASDIR JENN Rx#:[id number] IVPB 100 Output: Urine 300 Void 300 Other: Voiding Method Toilet Toilet # Unmeasured Voids Void 2 3 Weight Measurement Method Standing Scale Standing Scale PE: A&O x3, NAD unlabored resp on RA Abdomen soft, ND and diffusely tender throughout dressings c/d/i with no evidence of tracking erythema on surrounding tissue. b/l LE compartments soft, supple and non-tender with +2 pedal pulses Problem List - Problems (1) Acute cholecystitis due to biliary calculus Assessment/Plan: Patient doing well with some pain as expected. Plan: 1) trend labs/ LTFs 2) OOB as tolerated 3) advance diet 4) encourage IS 5) pain mngt Code(s): K80.00 - CALCULUS OF GALLBLADDER W ACUTE CHOLECYST W/O OBSTRUCTION
[2017-05-21 09:06] LABS: ALBUMIN 3.4 g/dl (3.5-5.0); ALK PHOS 116 U/L (32-92); ANION GAP 7 (8-16); BILIRUBIN,TOTAL 0.9 mg/dl (0.2-1.0); BLOOD UREA NITROGEN 10 mg/dl (7-18); CALCIUM 8.7 mg/dl (8.4-10.2); CHLORIDE 102 mmol/L (98-107); CO2 22 mmol/L (22-28); CREATININE 0.8 mg/dl (0.6-1.3); GLUCOSE,RANDOM 70 mg/dl (74-106); POTASSIUM 4.3 mmol/L (3.5-5.1); SGOT/AST 170 U/L (10-42); SGPT/ALT 380 U/L (10-40); SODIUM 131 mmol/L (136-145); TOT PROT 6.2 g/dl (6.4-8.3)
[2017-05-21 09:13] LABS: BASO % 0.1 % (0-2.0); EOS % 0.3 % (0-4.5); HEMATOCRIT 35.5 % (32.4-45.2); HEMOGLOBIN 12.4 GM/dl (10.7-15.3); LYMPH % 14.2 % (8-40); MEAN CELL VOLUME 85.9 fl (80-96); MONO % 5.8 % (3.8-10.2); NEUT % 79.6 % (42.8-82.8); PLATELET COUNT 229 K/MM3 (134-434); RBC 4.13 M/mm3 (3.60-5.2); WHITE BLOOD COUNT 10.1 K/mm3 (4.0-10.8)
[2017-05-21] MEDS: PANTOPRAZOLE SODIUM 40 MG VIAL IVPUSH SCH (09:25)
--- NOTE | 2017-05-21 10:09 | PN ---
Physical Exam: SUBJECTIVE: Patient seen and examined, reports ongoing abdominal pain, denies any nausea, patient is tolerating soft diet. OBJECTIVE: Patient is a 36 y/o female with a past medical history of GERD, patient was admitted from the emergency department for gallstone pancreatitis and choleystitis, patient is s/p cholecytectomy, Dr Ly, post op day 1. Vital Signs Period Temp Pulse Resp BP Sys/Smith Pulse Ox Last 24 Hr 98.3 F-99.0 F 58-87 11-19 84-107/39-60 95-100 GENERAL: The patient is awake, alert, and fully oriented, in no acute distress. HEAD: Normal with no signs of trauma. EYES: PERRL, extraocular movements intact, sclera anicteric, conjunctiva clear. No ptosis. ENT: Ears normal, nares patent, oropharynx clear without exudates, moist mucous membranes. NECK: Trachea midline, full range of motion, supple. LUNGS: Breath sounds equal, clear to auscultation bilaterally, no wheezes, no crackles, no accessory muscle use. HEART: Regular rate and rhythm, S1, S2 without murmur, rub or gallop. ABDOMEN: Soft, hypoactive bowel sounds, surgical site dressing cdi with point tenderness, nondistended, no guarding, no rebound, no hepatosplenomegaly, no masses. EXTREMITIES: 2+ pulses, warm, well-perfused, no edema. NEUROLOGICAL: Cranial nerves II through XII grossly intact. Normal speech, gait not observed. PSYCH: Normal mood, normal affect. SKIN: Warm, dry, normal turgor, no rashes or lesions noted Laboratory Results - last 24 hr CBC WBC 10.1 K/mm3 (4.0-10.8) D 05/21/17 07:10 RBC 4.13 M/mm3 (3.60-5.2) 05/21/17 07:10 Hgb 12.4 GM/dl (10.7-15.3) 05/21/17 07:10 Hct 35.5 % (32.4-45.2) 05/21/17 07:10 MCV 85.9 fl (80-96) 05/21/17 07:10 MCH 30.0 pg (25.7-33.7) 05/21/17 07:10 MCHC 35.0 g/dl (32.0-36.0) 05/21/17 07:10 RDW 12.0 % (11.6-15.6) 05/21/17 07:10 Plt Count 229 K/MM3 (134-434) 05/21/17 07:10 MPV 9.0 fl (7.5-11.1) 05/21/17 07:10 Neutrophils % 79.6 % (42.8-82.8) 05/21/17 07:10 Lymphocytes % 14.2 % (8-40) 05/21/17 07:10 Monocytes % 5.8 % (3.8-10.2) 05/21/17 07:10 Eosinophils % 0.3 % (0-4.5) 05/21/17 07:10 Basophils % 0.1 % (0-2.0) 05/21/17 07:10 CMP Sodium 131 mmol/L (136-145) L 05/21/17 07:10 Potassium 4.3 mmol/L (3.5-5.1) 05/21/17 07:10 Chloride 102 mmol/L (98-107) 05/21/17 07:10 Carbon Dioxide 22 mmol/L (22-28) 05/21/17 07:10 Anion Gap 7 (8-16) L 05/21/17 07:10 BUN 10 mg/dl (7-18) 05/21/17 07:10 Creatinine 0.8 mg/dl (0.6-1.3) 05/21/17 07:10 Creat Clearance w eGFR > 60 (>60) 05/21/17 07:10 Random Glucose 70 mg/dl (74-106) L 05/21/17 07:10 Calcium 8.7 mg/dl (8.4-10.2) 05/21/17 07:10 Total Bilirubin 0.9 mg/dl (0.2-1.0) 05/21/17 07:10 AST 170 U/L (10-42) H D 05/21/17 07:10 ALT 380 U/L (10-40) H 05/21/17 07:10 Alkaline Phosphatase 116 U/L (32-92) H 05/21/17 07:10 Total Protein 6.2 g/dl (6.4-8.3) L 05/21/17 07:10 Albumin 3.4 g/dl (3.5-5.0) L 05/21/17 07:10 Lipase 1579 U/L (73-393) H 05/20/17 07:15 Active Medications Generic Name Dose Route Start Last Admin Trade Name Freq PRN Reason Stop Dose Admin Hydromorphone HCl 1 mg 05/19/17 21:11 05/21/17 07:58 Dilaudid Injection - IVPB 1 mg Q4H PRN Administration PAIN Sodium Chloride 1,000 mls @ 250 mls/hr 05/20/17 12:38 05/20/17 13:00 Normal Saline - IV 250 mls/hr ASDIR JENN Administration Ondansetron HCl 4 mg 05/19/17 21:11 Zofran Injection IVPB Q4H PRN NAUSEA Pantoprazole Sodium 40 mg 05/19/17 21:15 05/21/17 09:25 Protonix Iv IVPUSH 40 mg DAILY JENN Administration Radiology Reports ABDOMEN MRI W W/O CONTRAST IMPRESSION: 1. No biliary ductal dilatation or pancreatic ductal dilatation. No evidence of choledocholithiasis. 2. Cholelithiasis with mild gallbladder wall thickening could be attributed to chronic cholecystitis. No definite evidence of acute cholecystitis. Please correlate clinically. 3. No MR evidence of pancreatitis. No pancreatic mass or peripancreatic collection. Reported By: Terri Desai DO 05/20/17 [id number] ASSESSMENT/PLAN: 1) GI Cholecystitis s/p lap cholecytectomy, POD 1 - Dr Ly consulted and following - encourage oob and frequent walking - ast/alt trending downward - continue prn oxycodone and dilaudid - incentive spirometer gallstone pancreatitis - lipase trending downward, pending am labs GERD - continue protonix DVT PPX - deferred, anticipated DC home in am FEN - NS @ 75cc/hr - CMP in am - regular diet Dispo: discharge tomm Visit type - Emergency Visit Emergency Visit: Yes ED Registration Date: 05/19/17 Care time: The patient presented to the Emergency Department on the above date and was hospitalized for further evaluation of their emergent condition. - New Patient This patient is new to me today: Yes Date on this admission: 05/21/17 - Critical Care Critical Care patient: No - Discharge Referral Referred to [facility] Med P.C.: No
[2017-05-21] MEDS: PANTOPRAZOLE 40 MG TABLET (FP) PO SCH (11:03)
--- NOTE | 2017-05-21 11:52 | PN ---
Progress Note (short form) - Note Progress Note: POD 1 Pain treated with medication On clears Vital Signs Period Temp Pulse Resp BP Sys/Smith Pulse Ox Last 24 Hr 98.3 F-99.0 F 58-87 11-19 84-107/39-60 95-100 CBC,CMP WBC 10.1 K/mm3 (4.0-10.8) D 05/21/17 07:10 RBC 4.13 M/mm3 (3.60-5.2) 05/21/17 07:10 Hgb 12.4 GM/dl (10.7-15.3) 05/21/17 07:10 Hct 35.5 % (32.4-45.2) 05/21/17 07:10 MCV 85.9 fl (80-96) 05/21/17 07:10 MCH 30.0 pg (25.7-33.7) 05/21/17 07:10 MCHC 35.0 g/dl (32.0-36.0) 05/21/17 07:10 RDW 12.0 % (11.6-15.6) 05/21/17 07:10 Plt Count 229 K/MM3 (134-434) 05/21/17 07:10 MPV 9.0 fl (7.5-11.1) 05/21/17 07:10 Neutrophils % 79.6 % (42.8-82.8) 05/21/17 07:10 Lymphocytes % 14.2 % (8-40) 05/21/17 07:10 Monocytes % 5.8 % (3.8-10.2) 05/21/17 07:10 Eosinophils % 0.3 % (0-4.5) 05/21/17 07:10 Basophils % 0.1 % (0-2.0) 05/21/17 07:10 Sodium 131 mmol/L (136-145) L 05/21/17 07:10 Potassium 4.3 mmol/L (3.5-5.1) 05/21/17 07:10 Chloride 102 mmol/L (98-107) 05/21/17 07:10 Carbon Dioxide 22 mmol/L (22-28) 05/21/17 07:10 Anion Gap 7 (8-16) L 05/21/17 07:10 BUN 10 mg/dl (7-18) 05/21/17 07:10 Creatinine 0.8 mg/dl (0.6-1.3) 05/21/17 07:10 Creat Clearance w eGFR > 60 (>60) 05/21/17 07:10 Random Glucose 70 mg/dl (74-106) L 05/21/17 07:10 Calcium 8.7 mg/dl (8.4-10.2) 05/21/17 07:10 Total Bilirubin 0.9 mg/dl (0.2-1.0) 05/21/17 07:10 AST 170 U/L (10-42) H D 05/21/17 07:10 ALT 380 U/L (10-40) H 05/21/17 07:10 Alkaline Phosphatase 116 U/L (32-92) H 05/21/17 07:10 Total Protein 6.2 g/dl (6.4-8.3) L 05/21/17 07:10 Albumin 3.4 g/dl (3.5-5.0) L 05/21/17 07:10 Lipase 1579 U/L (73-393) H 05/20/17 07:15 Low fat diet Pain control Ambulate
[2017-05-21] MEDS ORDERED: SODIUM CHLORIDE 1,000 ML IV SCH (12:03)
[2017-05-21 12:22] LABS: LIPASE 204 U/L (73-393)
[2017-05-21] MEDS: oxyCODONE HCL 5 MG TABLET PO PRN ×2 (12:23→16:23)
--- NOTE | 2017-05-21 16:12 | PN ---
Progress Note (short form) - Note Progress Note: Ansthesia Post op Pt seen and examined S;alert and awake c/o pain O: Vital Signs Temperature 98.7 F 05/21/17 14:17 Pulse Rate 78 05/21/17 14:17 Respiratory Rate 16 05/21/17 14:17 Blood Pressure 105/53 05/21/17 14:17 O2 Sat by Pulse Oximetry (%) 98 05/21/17 14:17 CBC, BMP 05/21/17 07:10 05/21/17 07:10 A/P: Current Active Problems Acute cholecystitis due to biliary calculus (Acute) DVT prophylaxis (Acute) Transaminitis (Acute) s/p lap cholecystectomy IV tylenol added continue oxycodon Richie Crowley MD
[2017-05-21] MEDS ORDERED: ACETAMINOPHEN 1000 MG/100 ML VIAL (NON FORMULARY) IVPB ONE (17:00)
[2017-05-21] MEDS: SIMETHICONE 80 MG TAB.CHEW (FP) PO PRN (22:49)
[2017-05-22] MEDS: HYDROmorphone HCL CARPU-JECT 1 MG/1 ML DISP.SYRIN IVPB PRN (07:44)
[2017-05-22 08:48] LABS: BASO % 0.2 % (0-2.0); EOS % 1.2 % (0-4.5); HEMATOCRIT 34.2 % (32.4-45.2); HEMOGLOBIN 11.9 GM/dl (10.7-15.3); LYMPH % 20.7 % (8-40); MCH 29.9 pg (25.7-33.7); MCHC 34.8 g/dl (32.0-36.0); MEAN PLT VOLUME 9.1 fl (7.5-11.1); MONO % 9.5 % (3.8-10.2); NEUT % 68.4 % (42.8-82.8); PLATELET COUNT 176 K/MM3 (134-434); RBC 3.98 M/mm3 (3.60-5.2); WHITE BLOOD COUNT 9.2 K/mm3 (4.0-10.8)
[2017-05-22 09:01] LABS: ALBUMIN 3.2 g/dl (3.5-5.0); ALK PHOS 93 U/L (32-92); AMYLASE 76 U/L (25-125); ANION GAP 7 (8-16); BILIRUBIN,TOTAL 0.7 mg/dl (0.2-1.0); BLOOD UREA NITROGEN 8 mg/dl (7-18); CALCIUM 8.3 mg/dl (8.4-10.2); CHLORIDE 102 mmol/L (98-107); CO2 25 mmol/L (22-28); CREATININE 0.8 mg/dl (0.6-1.3); GLUCOSE,RANDOM 93 mg/dl (74-106); MAGNESIUM 1.5 mg/dL (1.8-2.4); PHOSPHOROUS 3.3 mg/dl (2.5-4.6); POTASSIUM 3.4 mmol/L (3.5-5.1); SGOT/AST 88 U/L (10-42); SGPT/ALT 267 U/L (10-40); SODIUM 134 mmol/L (136-145); TOT PROT 6.1 g/dl (6.4-8.3)
[2017-05-22] MEDS: PANTOPRAZOLE 40 MG TABLET (FP) PO SCH (10:00)
[2017-05-22] MEDS: SIMETHICONE 80 MG TAB.CHEW (FP) PO PRN (10:03)
[2017-05-22] MEDS ORDERED: MAGNESIUM SULFATE IN WATER 2 GM/50 ML IVPB IVPB ONE (10:11)
[2017-05-22] MEDS ORDERED: POTASSIUM CHLORIDE TABS 20 MEQ TABLET.ER (FP) PO ONE (10:12)
--- NOTE | 2017-05-22 10:16 | DS ---
Physical Exam: SUBJECTIVE: Patient seen and examined, ambulatory throughout nursing station denies any chest pain or shortness of breath, patient is tolerating meals, reports incisional pain OBJECTIVE: Patient is a 36 y/o female with a past medical history of GERD, patient was admitted from the emergency department for gallstone pancreatitis and choleystitis, patient is s/p cholecytectomy, Dr Ly, post op day 2. Vital Signs Period Temp Pulse Resp BP Sys/Smith Pulse Ox Last 24 Hr 98.7 F-98.9 F 73-84 16-18 105-121/53-67 98-99 PHYSICAL EXAM GENERAL: The patient is awake, alert, and fully oriented, in no acute distress. HEAD: Normal with no signs of trauma. EYES: PERRL, extraocular movements intact, sclera anicteric, conjunctiva clear. No ptosis. ENT: Ears normal, nares patent, oropharynx clear without exudates, moist mucous membranes. NECK: Trachea midline, full range of motion, supple. LUNGS: Breath sounds equal, clear to auscultation bilaterally, no wheezes, no crackles, no accessory muscle use. HEART: Regular rate and rhythm, S1, S2 without murmur, rub or gallop. ABDOMEN: Soft, hypoactive bowel sounds, surgical site dressing cdi with point tenderness, nondistended, no guarding, no rebound, no hepatosplenomegaly, no masses. EXTREMITIES: 2+ pulses, warm, well-perfused, no edema. NEUROLOGICAL: Cranial nerves II through XII grossly intact. Normal speech, gait not observed. PSYCH: Normal mood, normal affect. SKIN: Warm, dry, normal turgor, no rashes or lesions noted LABS Laboratory Results - last 24 hr 05/21/17 05/22/17 05/22/17 07:10 07:15 07:15 WBC 9.2 RBC 3.98 Hgb 11.9 Hct 34.2 MCV 86.0 MCH 29.9 MCHC 34.8 RDW 12.0 Plt Count 176 MPV 9.1 Neutrophils % 68.4 Lymphocytes % 20.7 Monocytes % 9.5 Eosinophils % 1.2 Basophils % 0.2 Sodium 134 L Potassium 3.4 L D Chloride 102 Carbon Dioxide 25 Anion Gap 7 L BUN 8 Creatinine 0.8 Creat Clearance w eGFR > 60 Random Glucose 93 D Calcium 8.3 L Phosphorus 3.3 Magnesium 1.5 L Total Bilirubin 0.7 D AST 88 H D ALT 267 H D Alkaline Phosphatase 93 H Total Protein 6.1 L Albumin 3.2 L Total Amylase 76 Lipase 204 Radiology Reports ABDOMEN MRI W W/O CONTRAST IMPRESSION: 1. No biliary ductal dilatation or pancreatic ductal dilatation. No evidence of choledocholithiasis. 2. Cholelithiasis with mild gallbladder wall thickening could be attributed to chronic cholecystitis. No definite evidence of acute cholecystitis. Please correlate clinically. 3. No MR evidence of pancreatitis. No pancreatic mass or peripancreatic collection. Reported By: Terri Desai DO 05/20/17 1339 HOSPITAL COURSE: Cholecystitis s/p lap cholecytectomy, POD 2, Dr Ly - ast/alt trending downward - pain controlled with prn oxycodone and dilaudid - incentive spirometer gallstone pancreatitis - lipase WNL GERD - continued protonix Date of Admission:05/19/17 Date of Discharge: 05/22/17 Minutes to complete discharge: 45 Discharge Summary Reason For Visit: ABD PAIN Current Active Problems Acute cholecystitis due to biliary calculus (Acute) DVT prophylaxis (Acute) Transaminitis (Acute) Condition: Stable - Instructions Diet, Activity, Other Instructions: Isabela ELLIS, Post Operative Instructions Physical activity Resume your normal everyday activity as tolerated no heavy lifting or exercise until seen by your surgeon. You may walk unlimited amounts of and climb stairs. You may resume driving the car when you feel safe and comfortable behind the wheel. Wound care If you have a bandage, leave it on, and keep dry for 48 - 72 hours. After that time discard the outer bandage. If there are tapes on the skin under the outer bandage, leave them in place. They will peel off in the next 7 to 10 days. Do Not peel them off. You may shower 2 days after surgery. If there are tapes present on the skin, they can get wet. Diet There are no dietary restrictions. Eat healthy, high-fiber foods. Drink 6 to 8 glasses of liquid each day. This will assist in keeping your bowels are regular. Pain management You may take Tylenol or acetaminophen or Ibuprofen (for example, Motrin, Advil etc.) Any pain prescription medication ordered should be taken as prescribed for moderate to severe pain. Call Dr.Arad for any of the following: Severe pain not relieved by medication Fever of 101 or higher Excessive bleeding or drainage on dressing Call the office for a post operative appointment in 7 - 10 days. Referrals: Daniel Ly MD [Staff Physician] - Disposition: HOME - Home Medications Comprehensive Discharge Medication List: Ambulatory Orders Pantoprazole Sodium [Protonix -] 40 mg PO DAILY #30 tablet.ec 06/19/14 Docusate Sodium [Colace -] 100 mg PO TID #90 capsule 05/20/17 Oxycodone HCl/Acetaminophen [Percocet 5-325 mg Tablet] 1 - 2 tab PO Q6H #28 tab MDD 4 05/20/17 This patient is new to me today: No Emergency Visit: Yes ED Registration Date: 05/19/17 Care time: The patient presented to the Emergency Department on the above date and was hospitalized for further evaluation of their emergent condition. Critical Care patient: No - Discharge Referral [facility]erred to [facility] Med P.C.: No
[2017-05-22 11:57] LABS: LIPASE 342 U/L (73-393)
[2017-05-22] MEDS: oxyCODONE HCL 5 MG TABLET PO PRN (13:13)
[2017-05-22 13:39] VITALS: BP 118/60; PULSE 80; TEMP 98.2
--- NOTE | 2017-05-22 15:10 | PATH ---
Surgical Pathology Report Patient Name: SALLY ELLIS Med. Rec. #: [id number] /Age/Gender: 1980 (Age: 36) / F Account: [id number] Location: [facility] Taken: 05/20/2017 Received: 05/20/2017 Reported: 05/22/2017 Physicians: aDniel Ly M.D. Specimen(s) Received GALLBLADDER Clinical History Biliary pancreatitis Final Diagnosis GALLBLADDER, CHOLECYSTECTOMY: CHRONIC CHOLECYSTITIS AND CHOLELITHIASIS. Electronically Signed Rae Narvaez M.D. Gross Description Received in formalin, labeled "gallbladder" is an 8.5 x 2.5 x 2.0 cm gallbladder with kristian at one aspect. The serosal aspect appears smooth and shiny. Upon opening, the gallbladder is distended with multiple gross yellow choleliths admixed with thick viscid green bile and ranging from 0.1-0.5 cm in greatest dimension. The mucosa appears velvety and bile stained. The wall thickness is up to 0.2 cm. Customer Sales Representative sections are submitted in one cassette. ebram/05/21/2017
== END 2017-05-22 13:15 | disposition home or self-care (01) | DRG 418 ==
LOC: FER 18:39 → FM/S 22:36
PROVIDERS: ADMIT Internal Medicine; ATTEND Nurse Practitioner Family
PROC: 0FT44ZZ Resection of Gallbladder, Percutaneous Endoscopic Approach (ICD-10-PCS; principal; 2017-05-20 14:47)
DX: K85.10 Biliary acute pancreatitis without necrosis or infection (principal); K80.42 Calculus of bile duct with acute cholecystitis without obstruction; K29.60 Other gastritis without bleeding; Z88.0 Allergy status to penicillin; R74.0 Nonspecific elevation of levels of transaminase and lactic acid dehydrogenase [LDH]; K44.9 Diaphragmatic hernia without obstruction or gangrene; K21.9 Gastro-esophageal reflux disease without esophagitis
CPT/HCPCS: 36415; 74183-TC; 76705-TC; 80053; 81003; 82150; 83690; 83735; 84100; 84703; 85025; 88304-TC; 94760; 99283-25; J0131; J7030

== ENCOUNTER 2017-07-29 21:16 | Emergency (ER) | payer BC ==
--- NOTE | 2017-07-29 21:21 | PDOC ---
History of Present Illness - General History Source: Patient Exam Limitations: No Limitations - History of Present Illness Initial Comments: 07/29/17 21:43 The patient is a 36 year old female with no significant past medical history who presents to the ED with complaints of vaginal discharge and abdominal cramping for several days. Patient states she took 8 at home tests last week and they were all positive. She reports brown-colored vaginal discharge that is progressively worsening. Patient also reports generalized abdominal cramping. She states her last menstrual period was on 06/23/17. Denies fever or chills. Denies dysuria. Denies lightheadedness or dizziness. Denies chest pain or shortness of breath. Denies nausea, vomiting, or diarrhea. Denies any other symptoms. PAST MEDICAL HISTORY: no significant history PAST SURGICAL HISTORY: no significant history FAMILY HISTORY: no pertinent history SOCIAL HISTORY: Pt lives with family and is employed. MEDICATIONS: reviewed ALLERGIES: As per nursing notes General: No fevers or chills, no weakness, no weight loss HEENT: No change in vision. No sore throat,. No ear pain CardioVascular: No chest pain or shortness of breath Respiratory:No cough, or wheezing. Gastrointestinal: + abdominal cramping. no nausea, vomiting, diarrhea or constipation, No rectal bleeding Genitourinary: + vaginal discharge. No dysuria or frequency Musculoskeletal: No joint or muscle pain or swelling Neurologic: No headache, vertigo, dizziness or loss of consciousness Psychiatric: nor depression Skin: No rashes or easy bruising Endocrine: no increased thirst or abnormal weight change Allergic: no skin or latex allergy All other systems reviewed and normal General: Well-nourished well-developed individual, no acute distress HEENT: Throat: Normal, tonsils normal, no erythema or exudate Neck: Supple, no meningeal signs, no lymphadenopathy Eyes::Pupils equal reactive and round, extraocular motion intact Chest: Nontender to palpation Cardiac: S1-S2 normal, regular rate and rhythm, no murmurs rubs or gallops Respiratory: Lungs clear to auscultation bilateral Abdomen: Soft, nondistended, normal bowel sounds, nontender to palpation diffusely Pelvic: + there is a small amount of brown colored discharge. The os is closed. There is no adnexal tenderness or masses. Extremities: Warm, dry, no cyanosis, clubbing, or edema Skin: No rashes Neuro: Alert and oriented x3, nonfocal exam, grossly intact, normal gait Psych: Normal mood and affect <Gerald Frances - Last Filed: 07/29/17 21:43> - General History Source: Patient Exam Limitations: No Limitations - History of Present Illness Initial Comments: Ultrasound shows a possible twin of 5 weeks Assessment and plan: This is a 36-year-old female who comes in complaining of vaginal cramping and spotting. Patient has a probable twin I intrauterine and a beta hCG that is in the range of a 5 week gestation. Patient has an OB that she can follow-up with. Patient given copies of her blood work and ultrasound and told to follow-up with her OB. 07/29/17 23:32 <Disha Gary I - Last Filed: 07/29/17 23:34> - General Chief Complaint: Pain, Acute Stated Complaint: , CRAMPING DISCHARGE Time Seen by Provider: 07/29/17 21:19 Past History <Gerald Frances - Last Filed: 07/29/17 21:43> - Past Medical History COPD: No GI Disorders: Yes (GASTRITIS) Psychiatric Problems: Yes (ANXIETY) - Suicide/Smoking/Psychosocial Hx Smoking History: Never smoked Have you smoked in the past 12 months: No Hx Alcohol Use: (rarely) Substance Use Type: None <Disha Gary I - Last Filed: 07/29/17 23:34> - Past Medical History Allergies/Adverse Reactions: Allergies Allergy/AdvReac Type Severity Reaction Status Date / Time Penicillins Allergy Severe Hives Verified 07/29/17 21:23 Home Medications: Ambulatory Orders NK [No Known Home Medication] 07/29/17 *Physical Exam - Vital Signs Last Vital Signs Temp Pulse Resp BP Pulse Ox 98.5 F 72 16 111/73 98 07/29/17 21:25 07/29/17 21:25 07/29/17 21:25 07/29/17 21:25 07/29/17 21:25 <Gerald Frances - Last Filed: 07/29/17 21:43> ED Treatment Course - LABORATORY CBC & Chemistry Diagram: 07/29/17 21:25 07/29/17 21:25 <Disha Gary I - Last Filed: 07/29/17 23:34> *DC/Admit/Observation/Transfer - Attestations Scribe Attestion: 07/29/17 21:43 Documentation prepared by Gerald Frances, acting as medical imaging director for Disha Gary MD <Gerald Frances - Last Filed: 07/29/17 21:43> - Discharge Dispostion Decision to Admit order: No <Disha Gary I - Last Filed: 07/29/17 23:34> Diagnosis at time of Disposition: Intrauterine , Vaginal bleeding affecting early - Discharge Dispostion Disposition: HOME Condition at time of disposition: Stable - Patient Instructions Additional Instructions: Call your OB in the morning and get an appointment to follow-up. Return to the emergency department immediately with ANY new, persistent or worsening symptoms. Continue any medications as previously prescribed by your physician. You should follow up with your primary doctor as soon as possible regarding today's emergency department visit. . Please make sure your doctor reviews the results of your emergency evaluation. Thank you for coming to the Emergency Department today for your care. It was a pleasure to see you today. Please note that your evaluation is INCOMPLETE until you follow-up with your doctor.
[2017-07-29 21:43] VITALS: BP 111/73; PULSE 72; TEMP 98.5; BMI 25.0
[2017-07-29 21:48] LABS: PH,URINE 5.5 (4.5-8); URINE APPEARANCE Clear; URINE BILIRUBIN 1+ (NEGATIVE); URINE GLUCOSE (UA) Negative (NEGATIVE); URINE KETONE 4+ (NEGATIVE); URINE LEUK ESTERASE Negative (NEGATIVE); URINE NITRITE Negative (NEGATIVE); URINE PROTEIN Negative (NEGATIVE)
[2017-07-29 21:53] LABS: URINE COLOR YELLOW
[2017-07-29 21:56] LABS: EOS % 2.1 % (0-4.5)
[2017-07-29 22:01] LABS: HEMOGLOBIN 14.5 GM/dl (10.7-15.3)
[2017-07-29 22:04] LABS: HEMATOCRIT 43.3 % (32.4-45.2); LYMPH % 27.1 % (8-40); MCH 28.6 pg (25.7-33.7); MCHC 33.5 g/dl (32.0-36.0); MEAN CELL VOLUME 85.5 fl (80-96); MEAN PLT VOLUME 8.9 fl (7.5-11.1); MONO % 6.5 % (3.8-10.2); NEUT % 63.3 % (42.8-82.8); PLATELET COUNT 309 K/MM3 (134-434); RBC 5.06 M/mm3 (3.60-5.2); RDW 12.6 % (11.6-15.6); WHITE BLOOD COUNT 8.5 K/mm3 (4.0-10.8)
[2017-07-29 22:09] LABS: ALBUMIN 4.4 g/dl (3.5-5.0); ALK PHOS 56 U/L (32-92); ANION GAP 9 (8-16); BILIRUBIN,TOTAL 0.6 mg/dl (0.2-1.0); BLOOD UREA NITROGEN 8 mg/dl (7-18); CALCIUM 9.5 mg/dl (8.4-10.2); CHLORIDE 104 mmol/L (98-107); CO2 21 mmol/L (22-28); CREATININE 0.9 mg/dl (0.6-1.3); GLUCOSE,RANDOM 98 mg/dl (74-106); POTASSIUM 3.7 mmol/L (3.5-5.1); SGOT/AST 21 U/L (10-42); SGPT/ALT 11 U/L (10-40); SODIUM 134 mmol/L (136-145)
== END 2017-07-29 23:40 | disposition home or self-care (01) ==
LOC: FER 21:16
DX: O26.891 Other specified pregnancy related conditions, first trimester (principal); O20.9 Hemorrhage in early pregnancy, unspecified; Z3A.01 Less than 8 weeks gestation of pregnancy; Z37.9 Outcome of delivery, unspecified
CPT/HCPCS: 36415; 76815-TC; 80053; 81003; 84702; 85025; 99282-25